=== PATIENT | female | born 1970 | race Caucasian/White ===

== ENCOUNTER 2023-06-17 12:02 | Outpatient (CLI) | payer BC, SELFPAY ==
--- NOTE | 2023-06-17 12:14 | CT_ITS ---
APPROVED REPORT Early Intervention Specialist: CLINICAL INDICATION Chest Pain TECHNIQUE Image Acquisition: A 128 slice MDCT scanner (CloSysa View) was used for data acquisition. A noncontrast coronary calcium scan was performed. A CT attenuation threshold of 130 Hounsfield units (HU) was used for the detection of calcium in contiguous voxels of 1 sq mm in area to be counted as individual lesions. Bolus tracking in the ascending aorta with a threshold of 180 HU was performed. Immediately afterwards, ECG synchronized cardiac CT was then performed from the cardiac base to apex using retrospective gating with ECG tube current modulation. A total of 85 mL of Isovue 370 mg/mL contrast medium was administered at 5 mL/sec followed by a saline flush using a biphasic injection protocol. A tube voltage of 120 KVp was used. The patient received no medications prior to the cardiac CT. The average heart rate at the time of acquisition was 41 bpm and regular, but the patient was noted to have brief arrhythmia during acquisition of the study images. Image Reconstruction Transaxial images were reconstructed at 0.67 mm slide thickness. Data was reviewed interactively on an advanced workstation capable of 2 and 3-dimensional displays in all conventional reconstruction formats, including multiplanar reformations, maximum intensity projections, curved multiplanar reformations, and volume rendered reconstructions. When applicable, selected routine images describing the relevant coronary anatomy and pathology were saved and sent to PACS. Complications None Technical Quality Overall image quality was good. Coronary artery opacification was adequate. Total DLP (Dose-Length Product) is 2521.0 mGy-cm. The reported value represents the total of one or more individual components during the CT acquisition of this date and at this time, and as such, the same value may appear in more than one CT report depending on the interpreting/reporting physicians. COMPARISON None FINDINGS CT Coronary Calcium Scoring LMA (Left Main Artery) = 0 LAD (Left Anterior Descending) = 24 LCX (Left Coronary Circumflex) = 29 RCA (Right Coronary Artery) = 0 Total Calcium Score = using the AJ-130 method. The observed calcium score of 53 is at 95th percentile for subjects of the same age, sex, and race/ethnicity. The interpretation of the calcium heart score is based on the following continuum*: 0 = no calcified plaque detected (risk of coronary artery disease is very low ??? less than 5%) 1-10 = calcium detected in extremely minimal levels (risk of coronary diseases is still low ??? less than 10%) 11-100 = mild levels of plaque detected with certainty (mild or minimal narrowing of heart arteries is likely) 101-400 = definite,at least moderate levels of plaque detected (relatively high risk of a heart attack within 3-5 years) >401-999 = extensive levels of plaque detected (high risk of heart attack, high levels of vascular disease are present, high likelihood of at least one significant coronary narrowing) *The calcium heart score quantifies the burden of coronary calcification/plaque in the coronary arteries. The calcium heart score is not able to evaluate the presence or burden of non-calcified (i.e. soft) plaque. There is no identifiable calcification in the aortic valve, mitral annulus or mitral valve, pericardium, or myocardium. Coronary CT Angiography The coronary arterial system is right dominant. Quantitative Stenosis Grading: Left Main (LM): The left main originates normally from the left sinus of Valsalva. The LM bifurcates into the left anterior descending artery and left circumflex artery. The LM is patent with no evidence of atherosclerosis. Left Anterior Descending (LAD) and Diagonal Branches: The LAD gives off 2 diagonal branches. There is calcification noted in the proximal LAD, but no evidence of luminal stenosis. There is no evidence of LAD-myocardial bridge. Left Circumflex (LCX) and Obtuse Marginals (OM): The LCX gives off 2 Obtuse Marginal (OM) branches. There is calcification noted in the proximal LCx, but no evidence of luminal stenosis. Right Coronary Artery (RCA): The RCA originates normally from the right sinus of Valsalva. The RCA gives off a posterior descending artery (PDA) and posterolateral (PL) branches. The RCA and its branches are patent with no evidence of atherosclerosis. Non-Coronary Cardiac Findings: Analysis of the left ventricular (LV) structure and function was performed after 3-D reconstruction of the LV from axial images, with user-corrected automatic contouring for assessment of LV volumes and user-defined reconstruction from oblique planes for measurement of 3-D cardiac structure and function. -The left ventricle systolic function is normal. -There is no left atrial appendage filling defect. Two right pulmonary veins and two left pulmonary veins drain normally into the left atrium. -No pericardial thickening or calcification. -Central and branch pulmonary arteries in the [id number] are unremarkable. -Thoracic aorta within the visualized thoracic aortic-branches in the [id number] is unremarkable. Extracardiac Structures No significant extra-cardiac findings. Note, however, that this study is focused on the cardiac findings. IMPRESSION -Presence of coronary calcification with an Agatston score = 53 using the AJ-130 method. -The observed calcium score of 53 is at 95th percentile for subjects of the same age, sex, and race/ethnicity. -No evidence of significant flow-limiting atherosclerosis of the coronary arteries. -CAD-RADS 1. Management recommendations per ACC/AHA guidelines*, as clinically appropriate. *Recommendations: CAD RADS 0: Reassurance. Consider non-atherosclerotic causes of chest pain. CAD RADS 1: Consider non-atherosclerotic causes of chest pain. Consider preventive therapy and risk factor modification. CAD RADS 2: Consider non-atherosclerotic causes of chest pain. Consider preventive therapy and risk factor modification, particularly for patients with nonobstructive plaque in multiple segments. CAD RADS 3: Consider further functional testing. Consider symptom-guided anti-ischemic and preventive pharmacotherapy as well as risk factor modification per published guideline statements. CAD RADS 4A: Consider further functional testing or invasive coronary angiography with revascularization per published guideline statements. Consider symptom-guided anti-ischemic and preventive pharmacotherapy as well as risk factor modification per published guideline statements. CAD RADS 4B: Invasive coronary angiography recommended with revascularization per published guideline statements. Consider symptom-guided anti-ischemic and preventive pharmacotherapy as well as risk factor modification per published guideline statements. CAD RADS 5: Consider invasive angiography and/or viability assessment with revascularization per published guideline statements. Consider symptom-guided anti-ischemic and preventive pharmacotherapy as well as risk factor modification per published guideline statements. CRITICAL RESULT None COMMUNICATION Per this written report The coronary and cardiac findings of this CCTA were reviewed, reported, and signed by Fito Malhotra MD (Engineering Operator) Conclusion Electronically signed by : Katina Malhotra MD 06/18/2023 13:55:36
[2023-06-17 14:03] VITALS: BMI 23.0
[2023-06-17 14:04] VITALS: BP 119/64; PULSE 54; RESP 18; TEMP 36.7; O2SAT 100
[2023-06-17 14:19] LABS: Chloride 105 mmol/L (98-107)
[2023-06-17 14:20] LABS: Sodium 139 mmol/L (136-145)
[2023-06-17 14:22] LABS: Blood Urea Nitrogen 13 mg/dl (7-17); Creatinine Clearance Estimated 117 mL/min (50-200); Estimated Glomerular Filt Rate 105 ml/min (>60); GFR (African American) 128 ML/MIN (>60)
[2023-06-17 14:23] LABS: Carbon Dioxide 33 mmol/L (22.0-30.0); Glucose 87 mg/dl (74-100)
[2023-06-17 15:06] VITALS: BP 100/62; PULSE 63; RESP 16; O2SAT 96
[2023-06-17] MEDS: SODIUM CHLORIDE 0.9% 10ML SYR (RAD ONLY) 10 ML IV (15:10)
[2023-06-17] MEDS: 0.9 % SODIUM CHLORIDE 50 ML VIAL IV (15:10)
[2023-06-17] MEDS: IOPAMIDOL-370 (76%);100ML BOTTLE 75 ML IV (15:10)
== END 2023-06-17 15:06 | disposition home or self-care (01) ==
PROVIDERS: PCP Nurse Practitioner Family; Visit Provider Nurse Practitioner Family
DX: R07.9 Chest pain, unspecified (principal)
CPT/HCPCS: 75571; 75574; 80048; Q9967

== ENCOUNTER → 2023-12-24 08:41 | Day surgery (SDC) | payer BC, SELFPAY ==
[2023-12-24 09:08] VITALS: BP 110/61; PULSE 76; RESP 18; TEMP 36.3; O2SAT 100; BMI 24.7
--- NOTE | 2023-12-24 10:13 | EXP.TILT ---
Findings:: PROCEDURE: Tilt Table Test REQUESTING PROVIDER: Jose Daniel Churchill MD INDICATION: Dizziness, fluctuating blood pressure and heart rate, palpitations BETA BLOCKERS: Nebivolol held for at least 48 hours PRETEST VITAL SIGNS (supine position): BP 111/77, HR 65 bpm and sinus rhythm, O2Sats 100%. PROCEDURE SUMMARY: Patient was prepped per protocol, IV started, connected to heart, blood pressure and oxygen saturation monitors, and safety straps applied. She was then tilted to 70 degrees for a total of 30 minutes. The patient had minimal symptoms during the test stating that she felt very mildly short of breath when she was initially raised upright and then again intermittently during the test. Her shortness of breath was accompanied with an odd feeling in the chest. She had no other symptoms during the test and specifically denied any dizziness, lightheadedness, near syncope or palpitations. Her blood pressure remained stable with minimal fluctuations during the test. After initially being raised upright, her BP was 106/82 and HR was 77 bpm. During the test, her lowest BP was 102/76 (HR 71 bpm), occurring after 10 minutes upright. Her highest BP was 114/71 (HR 79 bpm), occurring after 25 minutes upright. Minimum HR was 71 BPM, occurring after 10 minutes upright and maximum HR was 83 bpm, occurring after 30 minutes upright. Oxygen saturation was 100% throughout the test. CONCLUSIONS: Unremarkable tilt table test with no significant change in vital signs and very minimal symptoms.
== END ==
LOC: RT 08:42
PROVIDERS: PCP Nurse Practitioner Family; Visit Provider Internal Medicine Cardiovascular Disease
DX: R00.2 Palpitations (principal)
CPT/HCPCS: 93660